=== PATIENT | female | born 1940 | race Caucasian/White ===

== ENCOUNTER 2016-10-13 20:12 | Emergency (ER) | payer OTHER, MEDICAID ==
[~2016-10-13] VITALS: Ht 160 cm; Wt 60.3 kg
[2016-10-13 20:25] VITALS: BP 164/89
--- NOTE | 2016-10-13 20:35 | NUR ---
PT TAKEN TO BED 8
--- NOTE | 2016-10-13 20:37 | NUR ---
75 Y/O HERE W/C/O R HIP PAIN THAT RADIATES TO R LEG S/P FALL X TODAY AT 11 AM. PT STATES TO BE IN PAIN 05/19. PER PT SHE TOOK NORCO X 2 HRS AGO. NO S/S OF DITRESS NOTED AT THE MOMENT. PA AWARED OF PT'S BP READINGS.
[2016-10-13] MEDS ORDERED: HYDROcodone/APAP 5/325 MG 1 TAB TAB PO ONE (20:55)
--- NOTE | 2016-10-13 21:07 | NUR ---
PT TAKEN O XRAY/CT
--- NOTE | 2016-10-13 21:47 | NUR ---
PT RETURN TO BED 8
--- NOTE | 2016-10-13 22:34 | NUR ---
Dr. Hackett evaluating patient at bedside.
[2016-10-13 23:23] VITALS: BP 148/84
--- NOTE | 2016-10-13 23:23 | NUR ---
Patient discharged with v/s stable. Written and verbal after care instructions given and explained. Patient alert, oriented and verbalized understanding of instructions. Wheel Chair Assisted with by caregiver. All questions addressed prior to discharge. ID band removed. Patient advised to follow up with PMD THIS WEEK OR RETURN TO ER IF S/S WORSEN. Rx of IBUPROFEN 800 MG given. Patient educated on indication of medication including possible reaction and side effects. Opportunity to ask questions provided and answered.
== END 2016-10-13 23:23 | disposition home or self-care (01) ==
LOC: MED 20:12
DX: S80.01XA Contusion of right knee, initial encounter (principal); M43.16 Spondylolisthesis, lumbar region; I10 Essential (primary) hypertension; E11.9 Type 2 diabetes mellitus without complications; W18.30XA Fall on same level, unspecified, initial encounter; Y93.89 Activity, other specified; Y92.89 Other specified places as the place of occurrence of the external cause; Y99.8 Other external cause status

== ENCOUNTER 2021-10-13 18:43 | Inpatient (IN) | payer OTHER, MEDICAID, SELFPAY ==
[~2021-10-13] VITALS: Ht 167.6 cm; Wt 84.8 kg
[2021-10-13] MEDS: NACL 0.9% 1,000 ML IV SCH (00:05)
[2021-10-13 18:54] VITALS: BP 184/93
--- NOTE | 2021-10-13 18:58 | NUR ---
BIB XHEELCHAIR TO ER BED 2
[2021-10-13] MEDS ORDERED: PANTOPRAZOLE 40 MG INJ VIAL IVP ONE (19:20)
--- NOTE | 2021-10-13 19:26 | NUR ---
LAB BEDSIDE COLLECTING BLOODWORK
--- NOTE | 2021-10-13 19:28 | NUR ---
REPORT GIVEN TO DOUGLAS ROACH
[2021-10-13 19:36] LABS: BASOPHILS # (AUTO) 0.1 K/uL (0.00-0.22); BASOPHILS % (AUTO) 0.6 % (0.0-2.0); EOSINOPHILS # (AUTO) 0.3 K/uL (0-0.4); EOSINOPHILS % (AUTO) 2.3 % (0.0-4.0); HEMATOCRIT 36.7 % (36-48); HEMOGLOBIN 12.1 g/dL (12.0-16.0); LYMPHOCYTES # (AUTO) 2.5 K/uL (2.5-16.5); LYMPHOCYTES % (AUTO) 22.5 % (20.5-51.1); MEAN CORPUSCULAR HEMOGLOBIN 30 pg (27-31); MEAN CORPUSCULAR HGB CONC 33 g/dL (33-37); MEAN CORPUSCULAR VOLUME 90.4 fL (80-94); MONOCYTES # (AUTO) 0.7 K/uL (0.8-1.0); MONOCYTES % (AUTO) 5.9 % (1.7-9.3); NEUTROPHILS # (AUTO) 7.7 K/uL (1.8-7.7); NEUTROPHILS % (AUTO) 68.7 % (42.2-75.2); PLATELET COUNT (AUTO) 318 K/uL (140-450); RED BLOOD CELL COUNT(AUTO) 4.06 MIL/uL (4.20-5.40); RED CELL DISTRIBUTION WIDTH 13.3 % (11.6-13.7); WHITE BLOOD COUNT (AUTO) 11.2 K/uL (4.8-10.8)
[2021-10-13 20:14] LABS: ALBUMIN 3.2 g/dL (3.4-5.0); ANION GAP 10.4 (8-16); ASPARTATE AMINOTRANSFERASE 14 U/L (15-37); CARBON DIOXIDE 29.6 mmol/L (21-32); CHLORIDE 105 mmol/L (98-107); CREATININE 1.2 mg/dL (0.6-1.3); GLUCOSE 134 mg/dL (74-106); LIPASE 36 U/L (73-393); SODIUM SERUM 141 mmol/L (136-145); TOTAL BILIRUBIN 0.6 mg/dL (0.0-1.0); UREA NITROGEN, BLOOD 14 mg/dL (7-18)
[2021-10-13 20:15] LABS: PROTHROMBIN TIME 9.9 secs (10.8-13.4)
--- NOTE | 2021-10-13 21:34 | NUR ---
called Snehal the granddaughter per patient request and left a VM to call back
--- NOTE | 2021-10-13 22:04 | NUR ---
patient granddaughter Snehal called back and reported that pt will be staying in the hospital.
[2021-10-13] MEDS ORDERED: ONDANSETRON 4 MG/2 ML VIAL IVP PRN (22:40)
[2021-10-13] MEDS ORDERED: MAGNESIUM OXIDE 400 MG TAB PO PRN (22:40)
[2021-10-13] MEDS ORDERED: POTASSIUM CHLORIDE 10 MEQ TABER PO PRN (22:40)
[2021-10-13] MEDS ORDERED: HYDROcodone/APAP 5/325 MG 1 TAB TAB PO PRN (22:40)
[2021-10-13] MEDS ORDERED: MAG SULF 2000 MG/WATER PREMIX 50 ML IV PRN (22:40)
[2021-10-13] MEDS ORDERED: ACETAMINOPHEN 325 MG TAB PO PRN (22:40)
[2021-10-13] MEDS ORDERED: MORPHINE SULFATE 4 MG/ML SYR IVP PRN (22:40)
[2021-10-13] MEDS ORDERED: KCL 20 MEQ/WATER INJ PREMIX 200 ML IV PRN (22:40)
[2021-10-13] MEDS ORDERED: PRED15SY34 PO (22:47)
--- NOTE | 2021-10-14 00:17 | NUR ---
Judy linda in [facility] - 10/14/21 at 0019 by CRISTY FORTUNATO GATES
--- NOTE | 2021-10-14 00:49 | NUR ---
Patient appears to be resting comfortably in bed- low fowlers and with eyes closed. Vital Signs within normal limits. Respirations even and unlabored. Safety measures are in place, attached to monitor, and will continue to monitor patient.
--- NOTE | 2021-10-14 01:12 | NUR ---
Patient will be admitted to care of [facility]. Admited to Med/Surg. Will go to room 115. Belongings list completed. Report to Stefany COLE.
--- NOTE | 2021-10-14 01:22 | NUR ---
pt tx to the floor via rashaun
--- NOTE | 2021-10-14 01:40 | NUR ---
RECEIVED PT ON [facility] FROM ER AFTER REPORT BY ER NURSE ABDIRIZAK. PT A&OX3 WITH PERIODS OF CONFUSION. TRANSFERRED FROM [facility] TO BED WITH TWO ASSIST. REPOSITIONED FOR COMFORT. ORIENTED TO ROOM, BED , CALL LIGHT TV AND BED CONTROLS. ADMISSION VITALS: BP-146/74, P-63,RR-18, T-97.1, O2 SAT= 100% ON ROOM AIR. SKIN INTACT. DENIES PAIN. HX OF DM, [place], NEUROPATHY. HAS BELONGINGS AT BEDSIDE: BLACK PANTS, T SHIRT, SOCKS, MAGENTA TANK, ZIP UP FLEECE JACKET,PURPLE PUFFER JACKET, BLACK PURSE CONTAINING WALLET WITH VARIOUS CARDS AND ID PLUS $120.00 IN 20 DOLLAR BILLS. PT PREFERS TO KEEP VALUABLES WITH HER AT BEDSIDE.CELL PHONE INCLUDED. ALL SAFETY MEASURES IN PLACE. WILL CONTINUE TO MONITOR.
[2021-10-14 04:00] VITALS: BP 153/76
--- NOTE | 2021-10-14 04:00 | NUR ---
NS @ 80CC/HR INFUSING PER PUMPING INTO RFA 20G IV WITHOUT DIFFICULTY. PT A&OX3. AWARE OF NPO STATUS EXCEPT MEDS. ALL SAFETY MEASURES IN PLACE. BED ALARM ON. CALL LIGHT WITHIN REACH CONTINUE TO MONITOR.
[2021-10-14 06:35] LABS: BASOPHILS # (AUTO) 0.1 K/uL (0.00-0.22); BASOPHILS % (AUTO) 0.6 % (0.0-2.0); EOSINOPHILS # (AUTO) 0.3 K/uL (0-0.4); EOSINOPHILS % (AUTO) 3.3 % (0.0-4.0); HEMATOCRIT 34.8 % (36-48); HEMOGLOBIN 11.5 g/dL (12.0-16.0); LYMPHOCYTES # (AUTO) 3.1 K/uL (2.5-16.5); LYMPHOCYTES % (AUTO) 32.5 % (20.5-51.1); MEAN CORPUSCULAR HEMOGLOBIN 30 pg (27-31); MEAN CORPUSCULAR HGB CONC 33 g/dL (33-37); MEAN CORPUSCULAR VOLUME 90.5 fL (80-94); MONOCYTES # (AUTO) 0.6 K/uL (0.8-1.0); MONOCYTES % (AUTO) 5.8 % (1.7-9.3); NEUTROPHILS # (AUTO) 5.5 K/uL (1.8-7.7); NEUTROPHILS % (AUTO) 57.8 % (42.2-75.2); PLATELET COUNT (AUTO) 280 K/uL (140-450); RED BLOOD CELL COUNT(AUTO) 3.85 MIL/uL (4.20-5.40); RED CELL DISTRIBUTION WIDTH 13.6 % (11.6-13.7); WHITE BLOOD COUNT (AUTO) 9.6 K/uL (4.8-10.8)
[2021-10-14 07:12] LABS: CARBON DIOXIDE 29.8 mmol/L (21-32); CHLORIDE 108 mmol/L (98-107); CREATININE 1.1 mg/dL (0.6-1.3); GLUCOSE 118 mg/dL (74-106); POTASSIUM 4.8 mmol/L (3.5-5.1); SODIUM SERUM 142 mmol/L (136-145); UREA NITROGEN, BLOOD 12 mg/dL (7-18)
--- NOTE | 2021-10-14 07:35 | NUR ---
ENDORSED REPORT TO DAY SHIFT NURSE FOR CONTINUITY OF CARE. PT STABLE.
--- NOTE | 2021-10-14 07:36 | NUR ---
RECEIVED PATIENT FROM DICER OPERATOR FOR CONTINUITY OF CARE. PATIENT A/A/O X4. RESPIRATORY EVEN AND UNLABORED, ON ROOM AIR, NO SIGN OF DISTRESS NOTED. SKIN WARM, DRY, NON DIAPHORETIC. IV ON RIGHT FA 20G, INTACT AND PATENT, IS INFUSING FLUID ORDER. PATIENT DENIES ANY PAIN OR DISCOMFORT. ABLE TO MAKE NEED KNOWN. PLAN OF CARE DISCUSSED, PATIENT VERBALIZED UNDERSTANDING. PRECAUTION IN PLACE. CALL LIGHT WITHIN REACH. WILL CONTINUE TO MONITOR.
[2021-10-14 08:00] VITALS: BP 156/78
[2021-10-14] MEDS: PANTOPRAZOLE 40 MG INJ VIAL IVP SCH ×2 (09:36→21:28)
--- NOTE | 2021-10-14 09:36 | NUR ---
SCHEDULE MEDICATION GIVEN WITH EDUCATION. PATIENT VERBALIZED UNDERSTANDING. PATIENT TOLERATED WELL. NO SIGN OF DISTRESS NOTED. PRECAUTION IN PLACE. CALL LIGHT WITHIN REACH, WILL CONTINUE TO MONITOR.
--- NOTE | 2021-10-14 10:32 | NUR ---
PATIENT HAS BEEN SCREENED AND CATEGORIZED HIGH NUTRITION RISK. PATIENT WILL BE SEEN WITHIN 1-2 DAYS OF ADMISSION. RECEIVED REFERRAL FOR DIARRHEA OVER THREE DAYS [address]
--- NOTE | 2021-10-14 11:13 | NUR ---
PATIENT'S DAUGHTER, YASMINE, CALLED TO UPDATE PATIENT'S CONDITION. ALL QUESTIONS WERE ANSWERED.
[2021-10-14] MEDS: NACL 0.9% 1,000 ML IV SCH (13:15)
--- NOTE | 2021-10-14 13:20 | NUR ---
PATIENT IS RESTING IN BED, NO SIGN OF DISTRESS NOTED. PRECAUTION IN PLACE. CALL LIGHT WITHIN REACH. WILL CONTINUE TO MONITOR.
--- NOTE | 2021-10-14 15:50 | NUR ---
PATIENT IS SLEEPING, CHEST RISE AND FALL NOTED, AROUSABLE TO VOICE. PRECAUTION IN PLACE. CALL LIGHT WITHIN REACH. WILL CONTINUE TO MONITOR.
[2021-10-14 16:00] VITALS: BP 157/80
--- NOTE | 2021-10-14 17:15 | NUR ---
PATIENT IS AWAKE, RESTING IN BED, NO SIGN OF DISTRESS NOTED. PRECAUTION IN PLACE. CALL LIGHT WITHIN REACH. WILL CONTINUE TO MONITOR.
--- NOTE | 2021-10-14 19:28 | NUR ---
ENDORSED PATIENT TO ORTHOPEDIC ASSISTANT NURSE FOR CONTINUITY OF CARE. PATIENT IS STABLE.
--- NOTE | 2021-10-14 19:30 | NUR ---
RECEIVED PT FROM AM NURSE FOR CONTINUITY OF CARE,PT IS STABLE NO DISTRESS NOTED
--- NOTE | 2021-10-14 21:30 | NUR ---
ALL MEDS GIVEN,TOLERATED WELL, BREATHING EVEN AND UNLABORED,ALL SAFETY MEASURES IN PLACE
--- NOTE | 2021-10-15 | NUR ---
PT SLEEPING AT THIS TIME,BREATHING EVEN AND UNLABORED NO DISTRES NOTED
[2021-10-15] MEDS: NACL 0.9% 1,000 ML IV SCH ×2 (00:33→15:19)
[2021-10-15 02:44] VITALS: BP 155/82
--- NOTE | 2021-10-15 03:00 | NUR ---
CLEANED AND REPOSITIONED THE PATIENT,NO STOOL COLLECTED YET AT THIS TIME FOR OCCULT BLOOD
--- NOTE | 2021-10-15 06:00 | NUR ---
PATIENT ASLEEP NO DISTRESS NOTED ,NO STOOL SPECIMEN COLLECTED
[2021-10-15 07:06] LABS: BASOPHILS # (AUTO) 0.1 K/uL (0.00-0.22); BASOPHILS % (AUTO) 0.5 % (0.0-2.0); EOSINOPHILS # (AUTO) 0.2 K/uL (0-0.4); HEMOGLOBIN 11.5 g/dL (12.0-16.0); LYMPHOCYTES # (AUTO) 2.5 K/uL (2.5-16.5); LYMPHOCYTES % (AUTO) 24.6 % (20.5-51.1); MEAN CORPUSCULAR HEMOGLOBIN 30 pg (27-31); MEAN CORPUSCULAR HGB CONC 33 g/dL (33-37); MEAN CORPUSCULAR VOLUME 90.6 fL (80-94); MONOCYTES # (AUTO) 0.4 K/uL (0.8-1.0); MONOCYTES % (AUTO) 4.2 % (1.7-9.3); NEUTROPHILS # (AUTO) 6.9 K/uL (1.8-7.7); NEUTROPHILS % (AUTO) 68.7 % (42.2-75.2); PLATELET COUNT (AUTO) 262 K/uL (140-450); RED BLOOD CELL COUNT(AUTO) 3.86 MIL/uL (4.20-5.40); RED CELL DISTRIBUTION WIDTH 13.8 % (11.6-13.7)
--- NOTE | 2021-10-15 07:30 | NUR ---
RECIVED REPORT FROM PM SHIFT DOUGLAS AMOS FOR CONTINUITY OF CARE. PT. ALERT. SLEEPING IN THE BED COMFORTABLY. NO S/SX OF DISTRESS OBSERVED. ALL SAFETY MEASURES IN PLACE. WILL CONTINUE TO MONITOR THE PT.
[2021-10-15 07:36] LABS: ANION GAP 10.4 (8-16); CARBON DIOXIDE 27.6 mmol/L (21-32); CHLORIDE 108 mmol/L (98-107); CREATININE 1.1 mg/dL (0.6-1.3); GLUCOSE 91 mg/dL (74-106); SODIUM SERUM 142 mmol/L (136-145); UREA NITROGEN, BLOOD 11 mg/dL (7-18)
[2021-10-15 08:00] VITALS: BP 160/84
[2021-10-15] MEDS: PANTOPRAZOLE 40 MG INJ VIAL IVP SCH ×2 (08:44→20:56)
--- NOTE | 2021-10-15 09:42 | NUR ---
PT. COMFORTABLY SLEEPING IN THE BED. ADMINISTERED SCHEDULED MEDS. PROVIDE ALL COMFORT AND SAFETY MEASURES. JONNATHAN;L CONTINUE TO MONITOR THE PT.
--- NOTE | 2021-10-15 11:07 | NUR ---
DC PLANNING: THE PATIENT ADMITTED FROM HOME WITH C/O DIARRHEA X 2 WEEKS. H/O DM AND HTN, GIVEN PROTONIX 80 MG IV AND ADMITTED FOR R/O UGI. ORDERS FOR GI CONSULT, PATIENT ALSO TESTED COVID POSITIVE. CONTINUED PROTONIX 40 MG IV BID AND IVF'S. KELLY SPOKE WITH THE PATIENTS DAUGHTER YASMINE BY PHONE AND CONFIRMED THE PATIENTS ADDRESS AND PHONE NUMBER. SHE LIVES IN A GROUND FLOOR APARTMENT WITH HER DAUGHTER ZULLY, YASMINE STATES THAT HER MOTHER IS TOTAL CARE. SHE DOES NOT AMBULATE BUT IS ABLE TO STAND AND PIVOT, HAS DME OF FWW AND WC. NO HOME HEALTH, THE PATIENT HAD BEEN STAYING WITH HER GRANDDAUGHTER PRIOR TO ADMISSION, YASMINE IS NOT SURE IF THE PATIENT WILL RETURN TO HER APARTMENT OR TO HER GRANDDAUGHTERS HOUSE. FAMILY IS INTERESTED IN [facility] CARE PLACEMENT, KELLY WILL SPEAK WITH INSURANCE REGARDING OPTIONS. KELLY WILL FOLLOW. Addendum: 10/15/21 at 1112 by Ambreen Blanc CM Amended: Links added. Addendum: 10/16/21 at 1130 by Ambreen Blanc CM DC PLANNING: ORDER RECEIVED FOR SNF PLACEMENT, CLINICAL PACKET FAXED TO [employer] AT [phone], MESSAGE LEFT FOR THE CM ASKING FOR CONTRACTED SNF'S AND AUTH AT [phone]. PATIENT HAS BEEN AT [facility] IN THE PAST, REFERRAL FAXED TO THEM. CM WILL FOLLOW. Addendum: 10/16/21 at 1326 by Ambreen Blanc CM DC PLANNING: CM SPOKE WITH DONAVON AT [employer] ([phone]), ASKED THAT PACKET BE FAXED TO [facility] BECAUSE OF PATIENTS COVID POSITIVE STATUS. PACKET FAXED, CM WILL SPEAK WITH FAMILY ABOUT PROVIDING OR PAYING FOR TRANSPORT. CM WILL FOLLOW. Addendum: 10/16/21 at 1612 by Ambreen Blanc CM DC PLANNING: [facility] DECLINED DUE TO LACK OF BEDS. KELLY FAXED TO [facility], [facility] AND [facility]. [facility] AND [facility] UNABLE TO ACCEPT, [facility] IS GOING TO TRY TO CREATE A FEMALE COVID BED BUT IS NOT ABLE TO ACCOMODATE TODAY. KELLY SPOKE WITH KELLY RAPHAEL AT [facility] ([phone]), AGREED THAT CM WILL F/U WITH [facility] IN AM. IF [facility] IS UNABLE TO ACCOMODATE PATIENT WILL DC HOME WITH HOME HEALTH AND HAS BEEN ON SERVICE WITH [facility] THE [facility]ST. KELLY WILL FOLLOW. Addendum: 10/17/21 at 1123 by Ambreen Blanc CM DC PLANNING: THE PATIENT HAS BEEN ACCEPTED TO [facility] POST ACUTE, ROOM [address]A, DR MAJANO WILL FOLLOW. FACILITY ASKING THAT PATIENT COME AROUND 5 PM, AUTH NUMBER FROM [facility] [id number] GIVEN TO ROBBIE AT [facility]. NUMBER TO CALL REPORT IS [phone]. KELLY ALSO SPOKE WITH THE PATIENTS DAUGHTER YASMINE, SHE WILL LEAD GENERATION REPRESENTATIVE THE PATIENT AT 4:00 TO TRANSPORT TO [facility]. DC INFORMATION ENDORSED TO THE PATIENTS DOUGLAS CRESPO CM WILL FOLLOW. Addendum: 10/17/21 at 1131 by Ambreen Blanc CM DC PLANNING: CORRECTION LAST NOTE FROM 10/16, KELLY SPOKE TO DONAVON AT [facility].
--- NOTE | 2021-10-15 14:00 | NUR ---
PT. ALERT, STABLE ON ROOM AIR. NO DISTRESS NOTED. NO S/S OF PAIN OR DISCOMFORT NOTED.RECEIVED ORDER FOR PO CLEAR LIQUID DIET . WILL FOLLOW UP WITH NEW ORDER AND WILL MONITOR FOR PO INTAKE.
--- NOTE | 2021-10-15 14:28 | NUR ---
10/15/21 RD INITIAL ASSESSMENT COMPLETED PLEASE REFER TO NUTRITION ASSESSMENT UNDER CARE ACTIVITY FOR ESTIMATED NUTRITIONAL NEEDS. 1. CONTINUE CLEAR LIQUID DIET TOLERATED 2. WHEN/IF MEDICALLY APPROPRIATE, ADVANCE TO REGULAR DIET TOLERATED 3. RD TO FOLLOW-UP 3-5 DAYS, MODERATE RISK [address]
--- NOTE | 2021-10-15 15:30 | NUR ---
PT. ALERT,STABLE. NO DISTRESS ON ROOM AIR. BREATHINGS EVEN AND UNLABORED. ALL SAFETY PRECAUTION IN PLACE. WILL CONTINUE TO MONITOR THE PT.RECEIVED DISCHARGE ORDER. WILL FOLLOW UP WITH HEALTH PROMOTION COORDINATOR.
--- NOTE | 2021-10-15 17:45 | NUR ---
NOTIFIED PT'S DAUGHTER REGARDING PT. BEING DISCHARGE AND CAN COME TO SUPER[employer]ENT [employer]ODUCTION HER MOTHER. SHE SAID THAT SHE CAN NOT TAKE HER MOM TO HOME BECAUSE OF SHE IS POSITIVE FOR COVID AND SHE HAS NO ROOM FOR HER. AND SHE HAS LITTLE DAUGHTER. REQUESTING TO TRANSFER PT. TO [facility] FOR NOW. SHE ALSO SPOKE WITH CHARGE NURSE ZEKE. ACCORDING TO CHARGE NURSE ZEKE WE WILL NOTIFY HER CONCERN TO MD DR. LANDIS AND FOLLOW UP
--- NOTE | 2021-10-15 18:25 | NUR ---
CALLED DR. REUBEN LU TO NOTIFY RE. FAMILY'S CONCERN ON EXCHANGE. DR. GUNN IS MITER GRINDER OPERATOR. SPOKE WITH SECRETORY MONIT AND LEFT MESSAGE. AWAITING FOR CALL BACK.
--- NOTE | 2021-10-15 18:40 | NUR ---
PT'S DAUGHTER YASMINE CALLED, STATED THEY DO NOT HAVE A ROOM FOR HER MOM INGRID AND EXPRESSED CONCERN REGARDING HER COVID POSITIVE STATUS. YASMINE WANTED TO HAVE HER MOM GO TO A SNF FOR REHAB WHILE SHE IS STILL POSITIVE FOR COVID. NOTIFIED DR. LANDIS, NEW ORDERS GIVEN.
--- NOTE | 2021-10-15 18:40 | NUR ---
CHARGE NURSE ZEKE SPOKE WITH DR LANDIS AND NOTIFIED HIM RE. PT. 'S FAMILY'S REQUEST , TO ARRANGE PT. DC TO GROUP HOME. SAID OK , WILL REQUEST TO CM TO ARRANGE PT. DC TO GROUP HOME. WILL FOLLOW UP AND WILL ENDODORSE TO PM SHIFT RN TO FOLLOW UP.
--- NOTE | 2021-10-15 18:59 | NUR ---
CALLED AND NOTIFIED PT'S DAUGHTER YASMINE. CM WILL ARRANGE [facility] DISCHARGE MD ORDER. SAID OK.
--- NOTE | 2021-10-15 19:15 | NUR ---
REPORT GIVEN TO PM SHIFT RN FOR CONTINUITY OF CARE. PT. BRANDON.
--- NOTE | 2021-10-15 19:20 | NUR ---
RECEIVED REPORT FROM MORNING SHIFT NURSE. PATIENT SITTING ON BED, FINISHING HER DINNER. RESPIRATION EVEN AND UNLABORED. NO COMPLAINTS AT THIS TIME. ISOLATION MAINTAINED. IV FLUIDS ONGOING AT DESIRED RATE. CALL LIGHT WITHIN REACH AND ADVISED TO CALL FOR ANY NEEDS. WILL CONTINUE TO MONITOR PATIENT.
[2021-10-15 20:00] VITALS: BP 148/75
[2021-10-16] MEDS: NACL 0.9% 1,000 ML IV SCH ×2 (03:42→10:07)
[2021-10-16 04:00] VITALS: BP 148/75
[2021-10-16 07:16] LABS: BASOPHILS % (AUTO) 0.5 % (0.0-2.0); EOSINOPHILS # (AUTO) 0.2 K/uL (0-0.4); EOSINOPHILS % (AUTO) 2.3 % (0.0-4.0); HEMATOCRIT 33.8 % (36-48); HEMOGLOBIN 11.1 g/dL (12.0-16.0); LYMPHOCYTES # (AUTO) 1.9 K/uL (2.5-16.5); LYMPHOCYTES % (AUTO) 21.2 % (20.5-51.1); MEAN CORPUSCULAR HEMOGLOBIN 30 pg (27-31); MEAN CORPUSCULAR HGB CONC 33 g/dL (33-37); MEAN CORPUSCULAR VOLUME 90.3 fL (80-94); MONOCYTES # (AUTO) 0.5 K/uL (0.8-1.0); NEUTROPHILS # (AUTO) 6.5 K/uL (1.8-7.7); PLATELET COUNT (AUTO) 268 K/uL (140-450); RED BLOOD CELL COUNT(AUTO) 3.74 MIL/uL (4.20-5.40); RED CELL DISTRIBUTION WIDTH 14.1 % (11.6-13.7); WHITE BLOOD COUNT (AUTO) 9.2 K/uL (4.8-10.8)
--- NOTE | 2021-10-16 07:22 | NUR ---
ENDORSED TO MORNING SHIFT RN. STILL PENDING STOOL OB COLLECTION, NO BM ON MY SHIFT.
--- NOTE | 2021-10-16 07:30 | NUR ---
RECEIVED PT FROM DOUGLAS LAST. PT IS AAOX4. NORMAL S1S2 NOTED. LUNG SOUNDS CTA, ON R/A. NO COUGH OR SOB. ABDOMEN SOFT, NONTENDER, NONDISTENDED. BOWEL SOUNDS ACTIVE X4. INCONTINENT OF BOWEL AND BLADDER. SKIN CDI. DISTAL PULSES NORMAL, NO EDEMA. IV CATH TO RFA WITH NS RUNNING AT 80ML/HOUR. SITE WNL, DRESSING CDI. PT DENIES PAIN. CALL LIGHT WITHIN REACH. BED IN LOWEST POSITION. DROPLET PRECAUTIONS AND FALL PROTOCOL MAINTAINED.
[2021-10-16 08:00] VITALS: BP 149/95
[2021-10-16 08:13] LABS: ANION GAP 14.5 (8-16); CARBON DIOXIDE 24.4 mmol/L (21-32); CHLORIDE 109 mmol/L (98-107); CREATININE 1.1 mg/dL (0.6-1.3); GLUCOSE 84 mg/dL (74-106); POTASSIUM 3.9 mmol/L (3.5-5.1); SODIUM SERUM 144 mmol/L (136-145); UREA NITROGEN, BLOOD 14 mg/dL (7-18)
[2021-10-16] MEDS: PANTOPRAZOLE 40 MG INJ VIAL IVP SCH ×2 (10:06→21:39)
--- NOTE | 2021-10-16 10:15 | NUR ---
SCHEDULED MEDS GIVEN AND TOLERATED WELL. RESP E/U. NO DISTRESS NOTED. DENIES PAIN. CALL LIGHT WITHIN REACH.
[2021-10-16 12:00] VITALS: BP 158/79
--- NOTE | 2021-10-16 14:00 | NUR ---
PT EDUCATED SHE WILL BE TRANSFERRING TO A [facility] FACILITY. CASE MANAGEMENT WILL ARRANGE IT AND ONCE SHE IS ACCEPTED TO A FACILITY HER FAMILY AND HER WILL BE MADE AWARE.
[2021-10-16 16:00] VITALS: BP 146/76
--- NOTE | 2021-10-16 16:54 | NUR ---
PER SD, RN DON CHECKED PRECISION ASSEMBLER NOTES TO SEE IF PT WILL TRANSFER TODAY, NOTHING WAS NOTED, CALLED AND LEFT MESSAGE TO EXT [phone]. AWAITING CALL BACK.
--- NOTE | 2021-10-16 17:19 | NUR ---
RECEIVED CALL FROM [facility], SPOKE TO LADONNA WHO STATED PT HAS BEEN ACCEPTED AT [facility], [facility] UNIT ROOM 100[address], ACCEPTING PHYSICIAN DR. METCALF. REPORT TO BE GIVEN TO [phone] AND CALLED IN AT 1800. CALLED CASE MANAGEMENT, NO ANSWER, CALL FRANKO BEAVER, NO ANSWER, CALL MILLY ALBRIGHT, NO ANSWER, LEFT MESSAGES TO ALL. PT WILL NEED TRANSFER ARRANGEMENT. WILL ATTEMPT TO CALL AGAIN. Addendum: 10/16/21 at 1740 by Agency 07 RN RN DISREGARD, NOTED ON WRONG PT.
--- NOTE | 2021-10-16 18:02 | NUR ---
CALLED AND SPOKE TO PT'S DAUGHTER YASMINE HERR AND REQUESTED EVIDENCE OF WHAT MEDICATION THE PT TAKES AT HOME, SHE STATED HER MOTHER HAS PRESCRIPTIONS BUT HASN'T BEEN TAKING THEM SCHEDULED. SHE STATED SHE WILL COME BY THE HOSPITAL THIS EVENING WITH HER MOM'S MEDS SO THEY CAN BE RECONCILED.
--- NOTE | 2021-10-16 19:38 | NUR ---
ENDORSED ALL CARE TO DOUGLAS ALEXANDRA. ALL QUESTIONS AND CONCERNS ADDRESSED.
[2021-10-16 20:00] VITALS: BP 139/71
[2021-10-17] MEDS: NACL 0.9% 1,000 ML IV SCH ×2 (01:55→14:44)
[2021-10-17 04:00] VITALS: BP 121/66
[2021-10-17 06:59] LABS: ANION GAP 7.6 (8-16); CARBON DIOXIDE 26.8 mmol/L (21-32); CHLORIDE 110 mmol/L (98-107); CREATININE 1.1 mg/dL (0.6-1.3); GLUCOSE 96 mg/dL (74-106); POTASSIUM 3.4 mmol/L (3.5-5.1); SODIUM SERUM 141 mmol/L (136-145); UREA NITROGEN, BLOOD 9 mg/dL (7-18)
--- NOTE | 2021-10-17 07:30 | NUR ---
RECEIVED REPORT FROM RISK MANAGEMENT CONSULTANT NURSE.
[2021-10-17 07:36] LABS: BASOPHILS % (AUTO) 0.5 % (0.0-2.0); EOSINOPHILS # (AUTO) 0.2 K/uL (0-0.4); EOSINOPHILS % (AUTO) 2.4 % (0.0-4.0); HEMOGLOBIN 10.3 g/dL (12.0-16.0); LYMPHOCYTES # (AUTO) 2.1 K/uL (2.5-16.5); LYMPHOCYTES % (AUTO) 21.9 % (20.5-51.1); MEAN CORPUSCULAR HEMOGLOBIN 31 pg (27-31); MEAN CORPUSCULAR HGB CONC 34 g/dL (33-37); MEAN CORPUSCULAR VOLUME 89.6 fL (80-94); MONOCYTES # (AUTO) 0.5 K/uL (0.8-1.0); MONOCYTES % (AUTO) 5.3 % (1.7-9.3); NEUTROPHILS # (AUTO) 6.7 K/uL (1.8-7.7); NEUTROPHILS % (AUTO) 69.9 % (42.2-75.2); PLATELET COUNT (AUTO) 222 K/uL (140-450); RED BLOOD CELL COUNT(AUTO) 3.35 MIL/uL (4.20-5.40); RED CELL DISTRIBUTION WIDTH 13.7 % (11.6-13.7); WHITE BLOOD COUNT (AUTO) 9.6 K/uL (4.8-10.8)
[2021-10-17] MEDS: PANTOPRAZOLE 40 MG INJ VIAL IVP SCH (08:42)
--- NOTE | 2021-10-17 10:01 | NUR ---
PHYSICAL THERAPY CO-SIGN The Physical Therapy Progress Notes documented by [employer] have been reviewed. Reviewed/Co-Signed by: Ryann Yu Documentation Done by: LATONYA MERAZ PTA Addendum: 10/17/21 at 1001 by Ryann Yu PT Amended: Links added.
--- NOTE | 2021-10-17 11:24 | NUR ---
PER TONI MENDOZA, PT WILL DC TO [facility] IN [facility] [address]. WILL CALL TO GIVE REPORT AT [phone]. PT FAMILY TO TRANSPORT AT 1600
[2021-10-17] MEDS ORDERED: GABA400C PO (11:40)
[2021-10-17] MEDS ORDERED: LISI40TA12 PO (11:40)
[2021-10-17] MEDS ORDERED: [UNRECOGNIZED DRUG - CODE] PO (11:40)
[2021-10-17] MEDS ORDERED: HYDR-4004 PO (11:40)
[2021-10-17] MEDS ORDERED: LINA72CA PO (11:40)
[2021-10-17] MEDS ORDERED: ATOR40TA PO (11:40)
[2021-10-17 12:00] VITALS: BP 136/70
--- NOTE | 2021-10-17 15:52 | NUR ---
[facility]ED [facility] AT [phone] FOR REPORT. PT WILL TRANSFER TO 129[address]. ENDORSED PT TO NURSE HYDE.
--- NOTE | 2021-10-17 17:44 | NUR ---
SPOKE TO PT DAUGHTER, STILL WAITING FOR KITCHEN MECHANIC. ETA 20-30 MINUTES
--- NOTE | 2021-10-17 18:16 | NUR ---
PT DISCHARGED TO FACILITY WITH FAMILY IN PERSONAL VEHICLE. ALL PROPERTY IN POSSESSION. IV REMOVED, CANULA INTACT. ID BAND REMOVED. NO S/S OF DISTRESS
== END 2021-10-17 18:00 | DRG 377 ==
LOC: MED 18:43 → UNDOADMIN 22:40 → MTU 22:40 → OBSVTOIN 10-16 08:21
PROVIDERS: ADMIT Hospitalist; ATTEND Hospitalist
DX: K92.2 Gastrointestinal hemorrhage, unspecified (principal); U07.1 COVID-19; E44.0 Moderate protein-calorie malnutrition; E11.9 Type 2 diabetes mellitus without complications; I10 Essential (primary) hypertension; D64.9 Anemia, unspecified; Z68.30 Body mass index [BMI] 30.0-30.9, adult
CPT/HCPCS: G0378 ×50; 36415; 80048; 80053; 83690; 85025; 85610; 85730; 86886; 86900; 86901; 87081; 97110; 97112; 97116; 97163-GP; 97530; C9113